=== PATIENT | male | born 1960 | race Caucasian/White ===

== ENCOUNTER 2019-09-24 10:47 | Emergency (ER) | payer BC, OTHER ==
[~2019-09-24] VITALS: Ht 177.8 cm; Wt 80.1 kg
[2019-09-24 10:53] VITALS: BP 131/79
--- NOTE | 2019-09-24 11:34 | NUR ---
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
--- NOTE | 2019-09-24 11:50 | NUR ---
PT TAKEN TO RADIOLOGY
--- NOTE | 2019-09-24 12:05 | NUR ---
PT BACK FROM RADIOLOGY. PT REPORTS FELT "CRUNCH" ON RLQ, TENDER TO TOUCH. PT REPORTS STOMACH HAS BEEN "GURGLING, WHICH MY STOMACH NEVER DOES." PT REPORTS PAIN COMES ON SUDDEN AND WILL BE 10/10 AT TIME.
[2019-09-24 12:26] LABS: BASOPHILS # (AUTO) 0.03 x10^3/uL (0-0.1); BASOPHILS % (AUTO) 1 % (0-1); EOSINOPHILS # (AUTO) 0.04 x10^3/uL (0-0.4); EOSINOPHILS % (AUTO) 1 % (1-7); LYMPHOCYTES # (AUTO) 1.16 x10^3/uL (1-3.4); LYMPHOCYTES % (AUTO) 21 % (22-44); MD NO; MEAN CORPUSCULAR HEMOGLOBIN 32.9 pg (27.5-34.5); MEAN CORPUSCULAR HGB CONC 33.4 g/dL (33.2-36.2); MEAN CORPUSCULAR VOLUME 98.4 fL (81-97); MEAN PLATELET VOLUME 8.9 fL (7.4-10.4); MONOCYTES # (AUTO) 0.71 x10^3/uL (0.2-0.8); MONOCYTES % (AUTO) 13 % (2-9); NEUTROPHILS % (AUTO) 65 % (42-75); PLATELET COUNT 174 x10^3/uL (130-400); RED BLOOD COUNT 4.03 x10^6/uL (4.38-5.82); RED CELL DISTRIBUTION WIDTH 14.5 % (9.4-14.8)
--- NOTE | 2019-09-24 12:32 | NUR ---
PT INSTRUCTED ON CLEAN CATCH URINE TECHNIQUE. URINE COLLECTED AND SENT TO LAB.
[2019-09-24 12:44] LABS: MICROSCOPIC NOT IND
[2019-09-24 12:50] LABS: CULTURE INDICATED? NO
--- NOTE | 2019-09-24 13:09 | NUR ---
INVESTMENT ANALYST: Patient/Caregiver given discharge instructions and they have confirmed that they understand the instructions. Patient ambulatory with steady gait.
== END 2019-09-24 13:10 | disposition home or self-care (01) ==
LOC: ED 12:50
DX: S39.011A Strain of muscle, fascia and tendon of abdomen, initial encounter (principal); I10 Essential (primary) hypertension; X50.0XXA Overexertion from strenuous movement or load, initial encounter; Y93.89 Activity, other specified; Y92.69 Other specified industrial and construction area as the place of occurrence of the external cause; Y99.0 Civilian activity done for income or pay
CPT/HCPCS: 36415; 74021; 81003; 85025; 99284

== ENCOUNTER 2020-06-14 05:44 | Emergency (ER) | payer OTHER ==
[~2020-06-14] VITALS: Ht 177.8 cm; Wt 80.0 kg
[2020-06-14 05:47] VITALS: BP 132/84
--- NOTE | 2020-06-14 06:17 | NUR ---
Covid swab collected and walked to lab.
[2020-06-14 06:47] LABS: BASOPHILS % (AUTO) 1 % (0-1); EOSINOPHILS % (AUTO) 2 % (1-7); LYMPHOCYTES % (AUTO) 12 % (22-44); MEAN CORPUSCULAR HEMOGLOBIN 29.9 pg (27.5-34.5); MEAN CORPUSCULAR HGB CONC 32.7 g/dL (33.2-36.2); MEAN PLATELET VOLUME 7.1 fL (7.4-10.4); MONOCYTES % (AUTO) 10 % (2-9); NEUTROPHILS % (AUTO) 76 % (42-75); PLATELET COUNT 329 x10^3/uL (130-400); RED BLOOD COUNT 4.84 x10^6/uL (4.38-5.82)
[2020-06-14 06:48] LABS: MD NO
[2020-06-14 06:50] LABS: ALANINE AMINOTRANSFERASE 20 U/L (12-78); ALBUMIN 3.4 g/dL (3.4-5.0); ANION GAP 4 mmol/L (5-15); CALCIUM 9.3 mg/dL (8.5-10.1); CHLORIDE 109 mmol/L (98-107)
[2020-06-14 06:53] LABS: ALKALINE PHOSPHATASE 107 U/L (45-117); BILIRUBIN,TOTAL 0.6 mg/dL (0.2-1.0); CREATININE 1.12 mg/dL (0.7-1.3); TOTAL PROTEIN 7.6 g/dL (6.4-8.2)
== END 2020-06-14 07:24 | disposition home or self-care (01) ==
LOC: ED 06:13
DX: B34.9 Viral infection, unspecified (principal); Z20.828 Contact with and (suspected) exposure to other viral communicable diseases; R05 Cough; R51.9 Headache, unspecified; J02.9 Acute pharyngitis, unspecified; R11.0 Nausea; R09.81 Nasal congestion; M79.10 Myalgia, unspecified site
CPT/HCPCS: 80053; 85025; 87635; 99283